=== PATIENT | female | born 1975 | race Two or more races ===

== ENCOUNTER 2024-03-05 14:03 | Emergency (ER) | payer MEDICAID ==
[~2024-03-05] VITALS: Ht 167.6 cm; Wt 71.0 kg
[2024-03-05] MEDS: HYDROCODONE/ACETAMINOPHEN 5/325MG TABLET PO ONE (14:40)
[2024-03-05] MEDS: IBUPROFEN 400MG TABLET PO ONE (14:40)
[2024-03-05] MEDS: LIDOCAINE HCL/PF 1% 10 MG/ML 5ML VIAL INFIL ONE (15:45)
[2024-03-05] MEDS: ONDANSETRON HCL 4MG/2ML INJ IV ONE (16:12)
[2024-03-05 16:13] VITALS: O2SAT 98
[2024-03-05] MEDS: PROPOFOL 200MG/20ML VIAL IV PRN (16:40)
[2024-03-05] MEDS ORDERED: IBUP-2028 MT (16:55)
[2024-03-05] MEDS ORDERED: HYDR-4001 MT (16:55)
[2024-03-05 18:20] VITALS: BP 102/54; PULSE 85; RESP 15; TEMP 98.6
== END 2024-03-05 18:20 | disposition home or self-care (01) ==
LOC: ER 14:03
DX: S52.502A Unspecified fracture of the lower end of left radius, initial encounter for closed fracture (principal); S92.252A Displaced fracture of navicular [scaphoid] of left foot, initial encounter for closed fracture; V49.49XA Driver injured in collision with other motor vehicles in traffic accident, initial encounter; Y93.89 Activity, other specified; Y92.89 Other specified places as the place of occurrence of the external cause; Y99.8 Other external cause status
CPT/HCPCS: 73090; 73110; 24650; 96374; 99152; 99285; J3490; J2405; J2704; Z7610 ×2